=== PATIENT | male | born 1990 | race Caucasian/White ===

== ENCOUNTER 2024-06-28 12:24 | Emergency (ER) | payer OTHER ==
--- NOTE | 2024-06-28 13:12 | ERPHSYRPT ---
- History of Present Illness Time Seen by Provider: 06/28/24 13:07 Source: patient Exam Limitations: no limitations Patient Subjective Stated Complaint: open sores draining, constant pain in leg and abd, hot flashes and chilling, weakness, fatigue Triage Nursing Assessment: Pt reports he has had recent surgeries and hospitalizations for fractures. He was hospitalized and given IV abx while admitted at [facility]. He had external fixator on left lower leg. He got the fixator taken off and turned self into [facility] at end of May of this year. Since then he has noticed abscesses and draige. When areas drain they have foul smelling odor that smells like "poop". He has been told in past that he has been tested positive for staphylococcus infection and that's why he had been hospitalized and on IV abx. Pt also reports pain that is constant in LLE and abd, fatigue, chills, weakness, fatigue. He had dressing intact to LLE and dressing was removed. Scarring observved on both medial and lateral extremity with some areas of bleeding areas. Pt reports that he had copious amounts of drainage previous 2-3 days that saturated dressing and clothing. Pt recently took Bactrim while he has been incarcerated. Physician History: open sores draining, constant pain in leg and abd, hot flashes and chilling, weakness, fatigue Pt reports he has had recent surgeries and hospitalizations for fractures. He was hospitalized and given IV abx while admitted at [facility]. He had external fixator on left lower leg. He got the fixator taken off and turned self into [facility] at end of May of this year. Since then he has noticed abscesses and draige. When areas drain they have foul smelling odor that smells like "poop". He has been told in past that he has been tested positive for staphylococcus infection and that's why he had been hospitalized and on IV abx. Pt also reports pain that is constant in LLE and abd, fatigue, chills, weakness, fatigue. He had dressing intact to LLE and dressing was removed. Scarring observved on both medial and lateral extremity with some areas of bleeding areas. Pt reports that he had copious amounts of drainage previous 2-3 days that saturated dressing and clothing. Pt recently took Bactrim while he has been incarcerated. Timing/Duration: day(s) (2-3 days) Severity: moderate Associated Symptoms: swelling/mass/lumps Allergies/Adverse Reactions: No Known Drug Allergies Allergy (Verified 06/28/24 12:46) Home Medications: No Reportable Medications [No Reported Medications] 06/28/24 [History] Hx Tetanus, Diphtheria Vaccination/Date Given: Yes Hx Influenza Vaccination/Date Given: No Travel Risk - International Travel Have you traveled outside of the country in past 3 weeks: No - Emerging Infectious Disease Symptoms: Headaches/Body Aches/, Joint Pain - Review of Systems Constitutional: Fatigue, Weakness, No Fever, No Chills Eyes: No Symptoms Ears, Nose, & Throat: No Symptoms Respiratory: No Cough, No Dyspnea Cardiac: No Chest Pain, No Edema, No Syncope Abdominal/Gastrointestinal: No Abdominal Pain, No Nausea, No Vomiting, No Diarrhea Genitourinary Symptoms: No Dysuria Musculoskeletal: No Back Pain, No Neck Pain Skin: Cellulitis, No Rash Neurological: No Dizziness, No Focal Weakness, No Sensory Changes Psychological: No Symptoms Endocrine: No Symptoms All Other Systems: Reviewed and Negative - Past Medical History Pertinent Past Medical History: Yes Neurological History: No Pertinent History ENT History: No Pertinent History Cardiac History: Hypertension Respiratory History: No Pertinent History Endocrine Medical History: No Pertinent History Musculoskeletal History: Fractures GI Medical History: No Pertinent History History: No Pertinent History Psycho-Social History: No Pertinent History Male Reproductive Disorders: No Pertinent History - Past Surgical History Past Surgical History: Yes Neuro Surgical History: No Pertinent History Cardiac: No Pertinent History Respiratory: No Pertinent History Gastrointestinal: No Pertinent History Genitourinary: No Pertinent History Musculoskeletal: Orthopedic Surgery Male Surgical History: No Pertinent History - Social History Smoking Status: Never smoker - Nursing Vital Signs Nursing Vital Signs: Initial Vital Signs Pulse Rate 111 H 06/28/24 12:27 Respiratory Rate 16 06/28/24 12:27 Blood Pressure 149/118 06/28/24 12:27 O2 Sat by Pulse Oximetry 97 06/28/24 12:27 Pain Scale Pain Intensity 3 - Physical Exam General Appearance: no apparent distress, alert Eye Exam: PERRL/EOMI, eyes nml inspection Ears, Nose, Throat Exam: normal ENT inspection, pharynx normal, moist mucous membranes Neck Exam: normal inspection, non-tender, supple, full range of motion Respiratory Exam: normal breath sounds, lungs clear, No respiratory distress Cardiovascular Exam: regular rate/rhythm, normal heart sounds Gastrointestinal/Abdomen Exam: soft, mass, No tenderness Back Exam: normal inspection, normal range of motion, No CVA tenderness, No vertebral tenderness Extremity Exam: normal inspection, normal range of motion Neurologic Exam: alert, oriented x 3, cooperative, normal mood/affect, sensation nml, No motor deficits Skin Exam: normal color, warm, dry, other (open wound on left leg) SpO2: 97 - Course Nursing assessment & vital signs reviewed: Yes Ordered Tests: Medication Summary Generic Name Dose Route Start Last Admin Trade Name Luci PRN Reason Stop Dose Admin Linezolid 300 mls @ 150 mls/hr 06/28/24 22:00 06/28/24 13:16 Zyvox 600 Mg Iv Premix IV 07/28/24 21:59 150 mls/hr Q12HT SACHI Administration - Progress Progress: unchanged Counseled pt/family regarding: diagnosis, need for follow-up Medical Desision Making - Risk of complications Low Risk: Low risk of morbidity from additional dx testing or treatment - Departure Departure Disposition: Home Clinical Impression: Ulcer of left lower extremity with fat layer exposed Condition: Stable Critical Care Time: No Referrals: ELIANA JORDAN NP [Primary Care Provider] - Follow up/PCP as directed Instructions: Wound Care (DC) Additional Instructions: Continue on your oral antibiotic till Sunday. Call your surgeon on Sunday and get an appointment for further wound care. Discharge/Care Plan FRANCISCO CHO was seen on 06/28/24 in the Emergency Room. The patient was counseled regarding Diagnosis,Lab results, Imaging studies, need for follow up and when to return to the Emergency Room. Prescriptions given: Discharge Note I have spoken with the patient and/or caregivers. I have explained the patient's condition, diagnosis and treatment plan based on the information available to me at this time. I have answered the patient's and/or caregiver's questions and addressed any concerns. The patient and/or caregivers have as good understanding of the patient's diagnosis, condition and treatment plan as can be expected at this point. The vital signs have been stable. The patient's condition is stable and appropriate for discharge from the emergency department. The patient will pursue further outpatient evaluation with the primary care physician or other designated or consulting physician as outlined in the discharge instructions. The patient and/or caregivers are agreeable to this plan of care and follow-up instructions have been explained in detail. The patient and/or caregivers have received these instruction. The patient/and or caregivers are aware that any significant change in condition or worsening of symptoms should prompt an immediate return to this or the closest emergency department or call 911. FRANCISCO CHO was seen on 06/28/24 n the Emergency Room. At that time you were treated for an emergent condition, during your visit Laboratory, Radiology an d/or other procedures may have been ordered. It is very important that you follow-up with your Primary Care Physician ELIANA JORDAN within the next 24-48 hours to review your Emergency Room visit and the final results of testing that was ordered. Some test results such as Urine Cultures, Blood Cultures, and other cultures if ordered will not be finalized for 24-48 hours. If you do not have a Primary Care Provider please call the medical records department at [phone] ext [phone] to obtain a copy of your results or you may sign into our patient portal to obtain these results by visiting us @ [email or web address] and completing the following steps: 1. Click on the Patient Portal link 2. Click the Patient Self Enrollment Link to complete the enrollment form and entering your 3. Once the enrollment form is completed you will receive an email with a temporary ID and password at the email address you provided. 4. Next choose a user name and password. Your user name must be at least 4 characters long and your password must be at least 4 characters long. 5. Choose a security question from the list and provide your answer to the question. If you already have signed into the Health Portal you may access your Health Care Information 14/05 by the following steps: 1. Login to our website @ [email or web address] 2. Enter your original user name and password. FAQS The [facility] Health Portal is an online tool that contains your Lab Results, Radiology Reports, Visit History, Discharge Instructions and Health Summary Lab and Radiology Results will not be available for 72 hours on the portal. The Portal is a secure site, passwords are encryted and URLs are re-written so they cannot be copied and pasted. You and authorized family members are the only ones who can access your Portal. Also there is a timeout feature that protects your information if you leave the Portal page open. If you have technical difficulty please use the Contact Us link on the page this will allow you to submit any questions you have regarding the Portal or you may contact the Medical Record Department at [phone] ext [phone].
[2024-06-28] MEDS: Zyvox 600 MG IV PREMIX*** 300 ML IV SCH (13:16)
[2024-06-28 14:37] VITALS: RESP 18
[2024-06-28 15:22] VITALS: BP 144/105; PULSE 88; O2SAT 96
== END 2024-06-28 15:29 | disposition home or self-care (01) ==
LOC: ED 12:24
DX: L97.922 Non-pressure chronic ulcer of unspecified part of left lower leg with fat layer exposed (principal); M79.662 Pain in left lower leg; I10 Essential (primary) hypertension
CPT/HCPCS: 36000; 96374; 99283; J2020